=== PATIENT | male | born 1985 | race Caucasian/White ===

== ENCOUNTER 2025-08-30 09:27 | Outpatient (CLI) | payer OTHER | END 2025-08-30 09:28 | disposition home or self-care (01) | LOC: SJX 09:27 | PROVIDERS: ATTEND Family Medicine | DX: R74.8 Abnormal levels of other serum enzymes (principal); Z82.71 Family history of polycystic kidney; K82.4 Cholesterolosis of gallbladder; R16.1 Splenomegaly, not elsewhere classified | CPT/HCPCS: 76700 ==